=== PATIENT | male | born 1930 | race Caucasian/White ===

== ENCOUNTER → 2016-08-11 | Outpatient (CLI) | payer MEDICARE, OTHER ==
[~2016-08-11] MED LIST: /AMLO25TA PO; /ESCI10TA PO; ALBU83IN INH; ASPI81TA85 PO; CEFT500T PO; CLOP75TA2 PO; GABA300C2 PO; IMMUN40IV IV; LIDO1DIS2 TD; MOBI15TA PO; MULTTAB4 PO; PRED20TA PO; PRIL20CA PO; SYNT50TA PO; TYLE325T5 PO; ULTR50TA PO; VITA10002 PO; ZANT300T PO
--- NOTE | 2016-08-11 13:20 | REP ---
CT chest without contrast, 08/11/2016: Indication: Solitary pulmonary nodule 15 mm diameter noted in left costophrenic angle on prior PA and lateral chest 04/20/2016. Comparison: CT chest 04/28/2016, PET scan 05/03/2016, chest radiograph 12/03/2013. TECHNIQUE: 3 mm contiguous spiral axial sections performed through chest without contrast. Moderate calcification is noted in the ascending thoracic aorta and aortic arch. There is ectasia of the ascending thoracic aorta yet without aneurysm. There are multiple sub cm nodes in the aorticopulmonary window and subcarinal location, none of which are pathologically enlarged. There are no pathologically enlarged hilar nodes. There are moderate coronary artery calcifications. Bullous changes are noted, right greater than left, with peripheral predominance. There is bilateral pleural thickening, stable and without calcified pleural plaques. There are no alveolar infiltrates or pleural effusions. Ill-defined nodular opacity is present within the lingula measuring 15 x 11 mm corresponding to the area of previous nodular opacity in the left costophrenic angle. It is not significantly changed and likely represents fibroatelectatic scarring. There is moderate diffuse fatty infiltration of liver. Two ovoid areas of hypodensity within the anterior superior left lobe of liver best seen on image 95 series 202 previously demonstrated hypermetabolic activity. There are no adrenal masses. The gallbladder is contracted. Visualized portions of the pancreas are atrophic. Included portions of kidneys without hydronephrosis. Impression:1. Ill-defined 1.5 cm nodular opacity in the left costophrenic angle lies within the lingula not significantly changed from prior CT chest 04/28/2016 and most likely represents fibroatelectatic changes/scarring. There was no hypermetabolic activity in this location. Recommend follow-up CT in 6-month for reevaluation. 2. Stable bilateral pleural thickening without pleural calcifications. 3. Two hypodense areas within left lobe of liver best seen on image 95 series 202 corresponds to two areas of hypermetabolic activity on prior PET scan 05/03/2016. Further imaging with liver ultrasound may be of benefit or IV contrast enhanced CT of the liver. Signed by Jeimy Wright MD 08/13/2016 07:57 P
== END ==
LOC: M RAD 12:17
PROVIDERS: ATTEND Internal Medicine Pulmonary Disease
DX: R93.5 Abnormal findings on diagnostic imaging of other abdominal regions, including retroperitoneum (principal); R93.8 Abnormal findings on diagnostic imaging of other specified body structures

== ENCOUNTER 2016-10-08 17:44 | Inpatient (IN) | payer MEDICARE, OTHER ==
[~2016-10-08] VITALS: Ht 188 cm; Wt 106.5 kg
[~2016-10-08 17:44] MED LIST changes: -CEFT500T PO; +CEFT500T3 PO
[2016-10-08] MEDS ORDERED: FOLI1TAB2 PO (18:27)
[2016-10-08] MEDS ORDERED: MUCI600T34 PO (18:27)
[2016-10-08] MEDS ORDERED: TYLE500T78 PO (18:27)
[2016-10-08] MEDS ORDERED: VITA100072 PO (18:27)
[2016-10-08] MEDS ORDERED: METH2.5TA PO (18:27)
[2016-10-08] MEDS ORDERED: PRED25TA PO (18:27)
[2016-10-08] MEDS ORDERED: LEXA1TAB PO (18:27)
[2016-10-08] MEDS ORDERED: ivig (18:27)
[2016-10-08] MEDS ORDERED: ASTE0.15 (18:27)
[2016-10-08] MEDS ORDERED: PRIL20CA9 PO (18:27)
[2016-10-08] MEDS ORDERED: dexameTHASONE 4 MG/ML 1ML VIAL (J1100) IV ONE (19:45)
[2016-10-08] MEDS ORDERED: IPRATROPIUM 0.5MG/ALBUTEROL 2.5MG INH SOL UD 3ML (DUONEB)(J7620) NEB ONE (19:45)
[2016-10-08 19:51] LABS: BASO % 0.2 % (0.0-1.0); EOS # 0.5 K/mm3 (0.0-0.50); EOS % 3.3 % (0.0-3.0); LARGE UNSTAINED CELL # 0.1 K/mm3 (0.0-0.4); LARGE UNSTAINED CELL % 0.9 % (0.0-4.0); LYMPH # 0.5 K/mm3 (1.5-4.5); LYMPH % 2.8 % (24.0-44.0); MEAN CORPUSCULAR HEMOGLOBIN 32.2 pg (27.0-33.0); MEAN CORPUSCULAR HGB CONC 33.7 g/dl (32.0-36.5); MEAN CORPUSCULAR VOLUME 95.4 fl (80.0-96.0); MONO # 0.8 K/mm3 (0.0-0.8); MONO % 5.6 % (0.0-5.0); NEUTROPHILS # 12.2 K/mm3 (1.8-7.7); NEUTROPHILS % 87.1 % (36.0-66.0); PLATELET COUNT, AUTOMATED 193 k/mm3 (150-450); RED CELL DISTRIBUTION WIDTH 13.9 % (11.5-14.5)
[2016-10-08 19:57] LABS: CALCIUM LEVEL 8.4 MG/DL (8.8-10.2); CREATININE FOR GFR 1.29 MG/DL (0.70-1.30); GLOMERULAR FILTRATION RATE 56.2 (>35); POTASSIUM SERUM 4.3 MEQ/L (3.5-5.1)
[2016-10-08] MEDS ORDERED: traMADol 50 MG TAB PO ONE (20:30)
[2016-10-08] MEDS: AZELASTINE 137MCG NASAL SPY 30 ML (ASTELIN) SCH (21:00)
[2016-10-08] MEDS: traMADol 50 MG TAB PO SCH (21:00)
[2016-10-08 22:42] LABS: ABG BASE EXCESS 0.1 (-2.0-2.0); ABG PARTIAL PRESSURE CO2 32.9 mmHg (35.0-45.0); ABG PARTIAL PRESSURE O2 69.5 mmHg (75.0-100.0); ABG STANDARD HCO3 24.5 MEQ/L (22.0-26.0); ABG pH (ARTERIAL) 7.463 UNITS (7.350-7.450)
[2016-10-09] MEDS ORDERED: GABA600T PO (00:13)
[2016-10-09] MEDS ORDERED: SYNT50TA PO (00:13)
[2016-10-09] MEDS ORDERED: ASPI81TA7 PO (00:13)
[2016-10-09] MEDS ORDERED: PLAV75TA38 PO (00:13)
[2016-10-09] MEDS ORDERED: LIDO1PAD TD (00:13)
[2016-10-09] MEDS ORDERED: AMLO10TA2 PO (00:13)
[2016-10-09] MEDS ORDERED: METH2.5TA PO (00:14)
[2016-10-09] MEDS ORDERED: MUCI600T34 PO (00:16)
[2016-10-09] MEDS ORDERED: VITMTA PO (00:16)
[2016-10-09] MEDS ORDERED: TRAM50TA2 PO (00:18)
[2016-10-09] MEDS ORDERED: RANI300T PO (00:18)
[2016-10-09] MEDS ORDERED: BISACODYL 10 MG SUPP PR PRN (00:45)
[2016-10-09] MEDS ORDERED: ACETAMINOPHEN TAB 650MG DOSE (2X325MG) PO PRN (00:45)
[2016-10-09] MEDS ORDERED: IPRATROPIUM 0.5MG/ALBUTEROL 2.5MG INH SOL UD 3ML (DUONEB)(J7620) NEB PRN (00:45)
[2016-10-09 01:30] VITALS: BP 158/82
[2016-10-09] MEDS: IPRATROPIUM 0.5MG/ALBUTEROL 2.5MG INH SOL UD 3ML (DUONEB)(J7620) NEB SCH ×4 (02:00→20:10)
[2016-10-09] MEDS: DOCUSATE SODIUM 100 MG CAP PO SCH ×3 (02:06→20:36)
[2016-10-09] MEDS: ESCITALOPRAM OXALATE 10 MG TAB (LEXAPRO) PO SCH ×2 (02:06→20:36)
[2016-10-09] MEDS: FAMOTIDINE 20 MG TAB PO SCH ×2 (02:06→20:36)
[2016-10-09] MEDS: cefTRIAXone SOD 1 GM in D5W MINI-BAG PLUS 50 ML IV SCH (02:06)
[2016-10-09] MEDS: GABAPENTIN 300 MG CAP PO SCH ×4 (02:06→20:36)
[2016-10-09] MEDS: guaiFENesin ER 600 MG TAB PO SCH ×3 (02:06→20:36)
[2016-10-09 06:00] VITALS: BP 152/82
[2016-10-09] MEDS ORDERED: methylPREDNISolone INJ 125 MG/2 ML VIAL (J2930) IV SCH (06:00)
[2016-10-09 06:24] LABS: BASO % 0.2 % (0.0-1.0); EOS # 0.1 K/mm3 (0.0-0.50); EOS % 0.6 % (0.0-3.0); LARGE UNSTAINED CELL # 0.1 K/mm3 (0.0-0.4); LARGE UNSTAINED CELL % 1.1 % (0.0-4.0); LYMPH # 0.7 K/mm3 (1.5-4.5); LYMPH % 7.4 % (24.0-44.0); MEAN CORPUSCULAR HEMOGLOBIN 31.8 pg (27.0-33.0); MEAN CORPUSCULAR HGB CONC 33.3 g/dl (32.0-36.5); MEAN CORPUSCULAR VOLUME 95.5 fl (80.0-96.0); MONO # 0.2 K/mm3 (0.0-0.8); MONO % 1.7 % (0.0-5.0); NEUTROPHILS # 8.7 K/mm3 (1.8-7.7); NEUTROPHILS % 89.1 % (36.0-66.0); PLATELET COUNT, AUTOMATED 218 k/mm3 (150-450); RED CELL DISTRIBUTION WIDTH 13.7 % (11.5-14.5); WHITE BLOOD COUNT 9.8 K/mm3 (4.0-10.0)
--- NOTE | 2016-10-09 06:39 | HPE ---
DATE OF ADMISSION: 10/09/2016 PRIMARY CARE PROVIDER: Dr. Costa REASON FOR ADMISSION: Hypoxia. HISTORY OF PRESENT ILLNESS: Patient is an 85-year-old male with past medical history significant for hypertension, hyperlipidemia, hypothyroidism and anxiety, neuropathy, on IVIG, back pain, peripheral vascular disease (PVD), chronic bronchitis, presented to the emergency room with his daughter after he started coughing today resulting in a fall and vomiting from the cough. When daughter arrived, he felt hot and he was diaphoretic. She took his blood pressure. It was elevated. He was complaining of a cough with clear sputum that started today. Patient has a chronic cough due to history of smoking, however, this cough was worse than his normal. In the emergency room, patient was found to be hypoxic. He is not normally on oxygen. He was started on oxygen 2 liters and his saturation came up to 93 2 liters of oxygen. Arterial blood gas (ABG) was done in the emergency room, which showed hypoxia with a pO2 of 69.5. Chest x-ray was done and it showed possible infiltrate. Patient is admitted under hospitalist service. REVIEW OF SYSTEMS: At this time, patient has no complaints. He denies any shortness of breath. Denies any nausea or vomiting. Denies any chest pain or palpitations. Denies any abdominal pain. No urinary symptoms. Denies any neurological symptoms. PAST MEDICAL HISTORY: Significant for hypertension, hyperlipidemia, hypothyroidism and anxiety, neuropathy, back pain, PVD, chronic bronchitis and history of left lacunar cerebrovascular accident (CVA). PAST SURGICAL HISTORY: Significant for endarterectomy, bilateral fem-pop surgeries, abdominal aortic aneurysm (AAA) repair. ALLERGIES: NO KNOWN DRUG ALLERGIES. SOCIAL HISTORY: Patient was a smoker, quit 20 years ago. He used to smoke three packs per day for 35 years. No alcohol use. Lives at home with his . FAMILY HISTORY: Noncontributory. HOME MEDICATIONS: Include: - Tylenol 1 gram by mouth twice a day as needed, pain or fever - albuterol sulfate 2.5 mg inhaled every 6 hours as needed, shortness of breath - amlodipine 10 mg by mouth daily - aspirin 81 mg by mouth daily - Estrapo two sprays in each nares twice a day - Plavix 75 mg by mouth daily - vitamin B12 daily - Lexapro 10 mg at bedtime - folic acid 1 mg by mouth twice a day - gabapentin 600 mg by mouth three times a day - Mucinex 600 mg by mouth twice a day - Synthroid 50 mcg by mouth in the morning - lidocaine patch applied to lower back as directed - methotrexate 7.5 mg by mouth daily - multivitamin one tablet by mouth daily - omeprazole 20 mg by mouth daily - prednisone 2.5 mg by mouth daily - ranitidine 1 mg to at bedtime - tramadol 50 mg by mouth twice a day PHYSICAL EXAMINATION: Vital signs on admission: Temperature 98.6, pulse 88, respiratory rate 22, blood pressure is 161/67, pulse oximetry initially 87% on room air and with 2 liters it came up to 94%. HEENT: Pupils equal, round, reactive light and accommodation. NECK: Supple. No jugular venous distention (JVD). Respiratory: Diminished breath sounds with rhonchi in the bases. Abdomen: Soft, nontender, nondistended. Cardiac: Regular rate and rhythm. Extremities: No clubbing, cyanosis or edema. Neurologic: Cranial nerves II-XII grossly intact. LABORATORY FINDINGS: WBCs 14, hemoglobin 15, hematocrit to 44.4, platelet count 193. Sodium 134, potassium 4.3, chloride 97, BUN 16, creatinine 1.29, BNP 119, fasting glucose 140. Blood gas: pH 7.46, pCO2 32.9 pO2 69.5, bicarbonate is 23. Blood cultures are pending. ASSESSMENT AND PLAN: 1. Shortness of breath, hypoxia, likely secondary to pneumonia +/- chronic obstructive pulmonary disease (COPD) exacerbation. Patient is not normally on oxygen, but has history of COPD due to long history of tobacco use. He has quit 20 years ago. We will continue patient on DuoNebs, Solu-Medrol. We will treat empirically for pneumonia. Obtain sputum cultures. Continue oxygen, titrate between 88-92%. 2. Leukocytosis. It may be secondary to chronic steroid use versus infection. Will continue to monitor. 3. History of hypertension. Continue patient's home medications. 4. Hyperlipidemia. 5. History of hypothyroidism. 6. History of anxiety. 7. Liver lesion diagnosed last July per PET scan. Per the daughter, patient did not want any invasive procedures done. No biopsies. Patient is currently FULL CODE, but per daughter, there has been no conversation regarding DO NOT RESUSCITATE, but patient does not want anything invasive at this time. 8. Deep venous thrombosis (DVT) prophylaxis. Sequential compressive devices (SCDs) while in bed.
[2016-10-09 06:42] LABS: ALBUMIN 3.6 GM/DL (3.2-5.2); ALBUMIN/GLOBULIN RATIO 0.92 (1.00-1.93); BILIRUBIN,TOTAL 0.5 MG/DL (0.2-1.0); CALCIUM LEVEL 8.6 MG/DL (8.8-10.2); CREATININE FOR GFR 1.38 MG/DL (0.70-1.30); POTASSIUM SERUM 4.1 MEQ/L (3.5-5.1); TOTAL PROTEIN 7.5 GM/DL (6.4-8.2)
[2016-10-09] MEDS: FOLIC ACID 1 MG TAB PO SCH ×2 (08:46→12:11)
[2016-10-09] MEDS: LEVOTHYROXINE 0.05 MG TAB (50 MCG) PO SCH (08:46)
[2016-10-09] MEDS: LIDOCAINE 5% (LIDODERM) PATCH TD SCH (08:46)
[2016-10-09] MEDS: ASPIRIN 81 MG ENTERIC TAB PO SCH (08:46)
[2016-10-09] MEDS: MULTIVITAMINS/MINERALS THERAP 1 TAB PO SCH (08:46)
[2016-10-09] MEDS: OMEPRAZOLE 20 MG CAP PO SCH (08:46)
[2016-10-09] MEDS: CYANOCOBALAMIN 500 MCG TAB PO SCH (08:47)
[2016-10-09] MEDS: amLODIPine 10 MG TAB PO SCH (08:49)
[2016-10-09] MEDS: CLOPIDOGREL 75 MG TAB PO SCH (08:49)
[2016-10-09] MEDS: traMADol 50 MG TAB PO SCH ×2 (08:49→20:38)
[2016-10-09] MEDS: AZELASTINE 137MCG NASAL SPY 30 ML (ASTELIN) SCH ×2 (08:50→20:36)
--- NOTE | 2016-10-09 08:52 | REP ---
CHEST, TWO VIEWS: HISTORY: Dyspnea. COMPARISON: 04/20/2016. An increase in interstitial markings is present in the lungs consistent with chronic interstitial fibrosis. The previously noted 1.5 cm left lower lobe nodule is not seen in the present radiographs. The heart is normal in size. The pulmonary vasculature is normal in appearance. The bony structure is intact. IMPRESSION: No acute disease. Signed by Hung Avalos MD 10/09/2016 09:14 A
[2016-10-09] MEDS: methylPREDNISolone INJ 40 MG/1 ML VIAL (J2920) IV SCH ×2 (14:10→22:20)
--- NOTE | 2016-10-09 20:32 | ECGEPIP ---
Stationary ECG Study [facility] - ED Test Date: 2016-10-08 Pat Name: CHRISTINA THIBODEAUX Department: Room: [place] [address] Gender: M [employer]: : 1930 Requested By: JACK IRBY Order Number: [id number] Reading MD: Tapan Rowley Measurements Intervals [place] Rate: 96 P: 81 ME: 199 QRS: -57 QRSD: 107 T: 103 QT: 355 QTc: 451 Interpretive Statements SINUS RHYTHM LEFT ANTERIOR FASCICULAR BLOCK POSSIBLE LATERAL MYOCARDIAL INFARCTION, OF INDETERMINATE AGE NSTTW ABNORMALITIES SIMILAR TO 01/10/14 Electronically Signed On 10-09-2016 20:32:38 EST by Tapan Rowley
[2016-10-09] MEDS: **NOTE PATIENT COMMENT** MISC XX SCH (20:38)
[2016-10-09 22:00] VITALS: BP 160/55
[2016-10-09] MEDS ORDERED: CALCIUM CARBONATE 500 MG CHEW U/D PO ONE (22:45)
[2016-10-10] MEDS: IPRATROPIUM 0.5MG/ALBUTEROL 2.5MG INH SOL UD 3ML (DUONEB)(J7620) NEB SCH ×4 (02:00→20:17)
[2016-10-10] MEDS: cefTRIAXone SOD 1 GM in D5W MINI-BAG PLUS 50 ML IV SCH (02:37)
[2016-10-10 06:00] VITALS: BP 148/82
[2016-10-10] MEDS: methylPREDNISolone INJ 40 MG/1 ML VIAL (J2920) IV SCH ×2 (06:37→14:45)
[2016-10-10 06:55] LABS: EOS # 0.1 K/mm3 (0.0-0.50); EOS % 0.7 % (0.0-3.0); LARGE UNSTAINED CELL # 0.2 K/mm3 (0.0-0.4); LARGE UNSTAINED CELL % 1.2 % (0.0-4.0); LYMPH # 1.1 K/mm3 (1.5-4.5); LYMPH % 5.6 % (24.0-44.0); MEAN CORPUSCULAR HEMOGLOBIN 32.3 pg (27.0-33.0); MEAN CORPUSCULAR HGB CONC 33.2 g/dl (32.0-36.5); MEAN CORPUSCULAR VOLUME 97.3 fl (80.0-96.0); MONO # 1.2 K/mm3 (0.0-0.8); MONO % 7.6 % (0.0-5.0); NEUTROPHILS # 13.8 K/mm3 (1.8-7.7); NEUTROPHILS % 84.8 % (36.0-66.0); PLATELET COUNT, AUTOMATED 208 k/mm3 (150-450); WHITE BLOOD COUNT 16.3 K/mm3 (4.0-10.0)
[2016-10-10 07:25] LABS: ALBUMIN 3.6 GM/DL (3.2-5.2); ALBUMIN/GLOBULIN RATIO 0.95 (1.00-1.93); BILIRUBIN,TOTAL 0.3 MG/DL (0.2-1.0); CALCIUM LEVEL 8.4 MG/DL (8.8-10.2); CREATININE FOR GFR 1.36 MG/DL (0.70-1.30); GLOMERULAR FILTRATION RATE 52.9 (>35); POTASSIUM SERUM 4.5 MEQ/L (3.5-5.1); TOTAL PROTEIN 7.4 GM/DL (6.4-8.2)
[2016-10-10] MEDS: AZELASTINE 137MCG NASAL SPY 30 ML (ASTELIN) SCH ×2 (08:09→21:00)
[2016-10-10] MEDS: GABAPENTIN 300 MG CAP PO SCH ×3 (08:09→21:20)
[2016-10-10] MEDS: guaiFENesin ER 600 MG TAB PO SCH ×2 (08:10→21:20)
[2016-10-10] MEDS: MULTIVITAMINS/MINERALS THERAP 1 TAB PO SCH (08:10)
[2016-10-10] MEDS: FOLIC ACID 1 MG TAB PO SCH ×2 (08:10→11:59)
[2016-10-10] MEDS: DOCUSATE SODIUM 100 MG CAP PO SCH ×2 (08:10→21:20)
[2016-10-10] MEDS: CLOPIDOGREL 75 MG TAB PO SCH (08:10)
[2016-10-10] MEDS: traMADol 50 MG TAB PO SCH ×2 (08:10→21:21)
[2016-10-10] MEDS: ASPIRIN 81 MG ENTERIC TAB PO SCH (08:10)
[2016-10-10] MEDS: CYANOCOBALAMIN 500 MCG TAB PO SCH (08:10)
[2016-10-10] MEDS: LEVOTHYROXINE 0.05 MG TAB (50 MCG) PO SCH (08:10)
[2016-10-10] MEDS: OMEPRAZOLE 20 MG CAP PO SCH (08:10)
[2016-10-10] MEDS: LIDOCAINE 5% (LIDODERM) PATCH TD SCH (08:11)
[2016-10-10] MEDS: amLODIPine 10 MG TAB PO SCH (08:16)
--- NOTE | 2016-10-10 11:38 | IPNPDOC ---
Subjective Date Seen The patient was seen on 10/10/16. Subjective Chief Complaint/HPI The patient is a 85-year-old male admitted with a reason for visit of Hypoxia. Events since last encounter no new events overnight , patient upset as his was transferred to [place] last night for AMI. Not requiring any oxygen since last night , no fever or chills, no chest pain or shortness of breath. Objective Physical Examination General Exam: Positive: Alert, No Acute Distress Eye Exam: Positive: Conjunctiva & lids normal, EOMI, PERRLA, Negative: Sclera icteric ENT Exam: Positive: Atraumatic, Mucous membr. moist/pink, Pharynx Normal Neck Exam: Positive: Supple, Negative: JVD, thyromegaly Chest Exam: Positive: Rales, Rhonchi, Wheezing Heart Exam: Positive: Normal S1, Normal S2, Rate Normal, Regular Rhythm, Negative: Murmurs, Rubs Abdomen Exam: Positive: Normal bowel sounds, Soft, Negative: Hepatospenomegaly, Tenderness Extremity Exam: Positive: Normal pulses, Negative: Clubbing, Cyanosis, Edema Skin Exam: Positive: Nl turgor and temperature, Negative: Breakdown, Rash Assessment /Plan Problems (1) Hypoxia Status: Resolved Problem Text: due to copd exacerbation now improved. (2) Chronic obstructive pulmonary disease with (acute) exacerbation Status: Acute Problem Text: will continue with nebulizations , steroids and antibiotics. (3) Hypothyroid Status: Chronic (4) Hyperlipidemia Status: Chronic (5) Hypertension Status: Chronic (6) PVD (peripheral vascular disease) Status: Chronic Problem Text: s/p bilateral fem-pop bypass surgeries. (7) Polyneuropathy Status: Chronic (8) S/P AAA repair Status: Chronic (9) Anxiety Status: Chronic (10) H/O: CVA (cerebrovascular accident) Status: Resolved Problem Text: had carotid endarterectomy. (11) CAD (coronary artery disease) Status: Chronic Plan/VTE VTE Prophylaxis Ordered?: Yes VS, I&O, 24H, Fishbone Vital Signs/I&O Vital Signs Date Time Temp Pulse Resp B/P Pulse Ox O2 Delivery O2 Flow Rate FiO2 10/10/16 09:00 Room Air 10/10/16 08:16 83 174/68 10/10/16 08:10 18 10/10/16 06:00 97.2 90 10/09/16 06:00 2.0 I&O- Last 24 Hours up to 6 AM 10/10/16 06:00 Intake Total 2210 ml Output Total 775 ml Balance 1435 ml Laboratory Data 24H LABS Laboratory Tests 2 10/10/16 06:43: Blood Urea Nitrogen 28#H, Creatinine 1.36H, Sodium Level 134L, Potassium Level 4.5, Chloride Level 100, Carbon Dioxide Level 26, Calcium Level 8.4L, Aspartate Amino Transf (AST/SGOT) 52H, Alanine Aminotransferase (ALT/SGPT) 41, Alkaline Phosphatase 68, Total Bilirubin 0.3, Total Protein 7.4, Albumin 3.6, Albumin/ Globulin Ratio 0.95L, Anion Gap 8, White Blood Count 16.3H, Red Blood Count 4.61 , Hemoglobin 14.9, Hematocrit 44.9, Mean Corpuscular Volume 97.3H, Mean Corpuscular Hemoglobin 32.3, Mean Corpuscular Hemoglobin Concent 33.2, Red Cell Distribution Width 14.0, Platelet Count 208, Neutrophils (%) (Auto) 84.8H, Lymphocytes (%) (Auto) 5.6L, Monocytes (%) (Auto) 7.6H, Eosinophils (%) (Auto) 0.7, Basophils (%) (Auto) 0.0, Neutrophils # (Auto) 13.8H, Lymphocytes # (Auto) 1.1L, Monocytes # (Auto) 1.2H, Eosinophils # (Auto) 0.1, Basophils # (Auto) 0.0 , Glomerular Filtration Rate 52.9, Large Unclassified Cells # 0.2, Large Unclassified Cells % 1.2 CBC/BMP Laboratory Tests 10/10/16 06:43 Calcium Level 8.4 L, Aspartate Amino Transf (AST/SGOT) 52 H, Alanine Aminotransferase (ALT/SGPT) 41, Alkaline Phosphatase 68, Total Bilirubin 0.3, Total Protein 7.4, Albumin 3.6, Red Blood Count 4.61, Mean Corpuscular Volume 97.3 H, Mean Corpuscular Hemoglobin 32.3, Mean Corpuscular Hemoglobin Concent 33.2, Red Cell Distribution Width 14.0, Neutrophils (%) (Auto) 84.8 H, Lymphocytes (%) (Auto) 5.6 L, Monocytes (%) (Auto) 7.6 H, Eosinophils (%) (Auto ) 0.7, Basophils (%) (Auto) 0.0, Neutrophils # (Auto) 13.8 H, Lymphocytes # ( Auto) 1.1 L, Monocytes # (Auto) 1.2 H, Eosinophils # (Auto) 0.1, Basophils # ( Auto) 0.0 Microbiology Microbiology 10/09/16 Blood Culture - Preliminary, Resulted No growth after 24 hours . All specim... 10/09/16 Gram Stain - Final, Resulted 10/09/16 Sputum Culture, Resulted Pending VICENTE DEL REAL MD Oct 10, 2016 11:38
[2016-10-10 14:00] VITALS: BP 184/67
[2016-10-10 18:34] VITALS: BP 180/80
[2016-10-10] MEDS: **NOTE PATIENT COMMENT** MISC XX SCH (21:00)
[2016-10-10 21:20] VITALS: BP 182/78
[2016-10-10] MEDS: cloNIDine 0.1 MG TAB PO PRN (21:20)
[2016-10-10] MEDS: ESCITALOPRAM OXALATE 10 MG TAB (LEXAPRO) PO SCH (21:20)
[2016-10-10] MEDS: FAMOTIDINE 20 MG TAB PO SCH (21:20)
[2016-10-10 22:00] VITALS: BP 190/92
[2016-10-10 22:45] VITALS: BP 140/68
[2016-10-11] MEDS: IPRATROPIUM 0.5MG/ALBUTEROL 2.5MG INH SOL UD 3ML (DUONEB)(J7620) NEB SCH ×4 (01:52→19:47)
[2016-10-11] MEDS: cefTRIAXone SOD 1 GM in D5W MINI-BAG PLUS 50 ML IV SCH (02:13)
--- NOTE | 2016-10-11 05:57 | ECHO ---
DATE OF PROCEDURE: 10/10/2016 REFERRING PHYSICIAN: Dr. Antonella Valderrama INDICATION: Dyspnea. HEIGHT: 188 cm. WEIGHT: 111 kg. MEASUREMENTS: Aortic root: 3.3 cm Left atrium: 3.6 cm Ventricular septum: 1.11 cm Posterior wall: 1.09 cm Left ventricle diastole: 4.7 cm LVOT: 2.3 cm Inferior vena cava: 1.6 cm with marked respiratory variation much more than 50%. DOPPLER MEASUREMENTS: Very mild aortic regurgitation. Aortic valve velocity: 163 cm/s LVOT velocity: 85.0 cm/s Trace mitral regurgitation. Mitral E velocity: 80.0 cm/s Mitral A velocity: 117 cm/s Mitral deacceleration time: 155 ms Pulmonary acceleration time: 176 ms MITRAL ANNULAR TISSUE DOPPLER: E-prime septal: 8.2 cm/s DESCRIPTION: Rhythm was sinus. No pericardial effusion. This was a moderately technically difficult echocardiogram. This was a 2D, M-mode, color flow Doppler and pulsed wave Doppler examination and included mitral annular tissue Doppler. CONCLUSIONS: 1. Hyperdynamic LV systolic function. LVEF 75% by visual estimate. Normal LV diastolic function for age. No regional wall motion abnormalities. Normal LV wall thickness and size. 2. Pulmonary artery systolic pressure not elevated. Central venous pressure estimated to be 0-5 mmHg at the time of this study. 3. Moderate aortic valve sclerosis of a 3-cusp aortic valve. No aortic stenosis. Very mild aortic regurgitation. 4. Moderate mitral annular calcification. No mitral stenosis. Trace mitral regurgitation. 5. Moderately technically difficulty echocardiogram.
[2016-10-11 06:00] VITALS: BP 166/72
[2016-10-11] MEDS: methylPREDNISolone INJ 40 MG/1 ML VIAL (J2920) IV SCH (06:17)
[2016-10-11 06:55] LABS: BASO % 0.1 % (0.0-1.0); EOS % 0.3 % (0.0-3.0); LARGE UNSTAINED CELL # 0.4 K/mm3 (0.0-0.4); LYMPH # 0.9 K/mm3 (1.5-4.5); LYMPH % 6.5 % (24.0-44.0); MEAN CORPUSCULAR HEMOGLOBIN 31.2 pg (27.0-33.0); MEAN CORPUSCULAR HGB CONC 32.4 g/dl (32.0-36.5); MEAN CORPUSCULAR VOLUME 96.3 fl (80.0-96.0); MONO # 1.2 K/mm3 (0.0-0.8); NEUTROPHILS # 10.5 K/mm3 (1.8-7.7); NEUTROPHILS % 81.1 % (36.0-66.0); PLATELET COUNT, AUTOMATED 173 k/mm3 (150-450); RED CELL DISTRIBUTION WIDTH 13.8 % (11.5-14.5); WHITE BLOOD COUNT 12.9 K/mm3 (4.0-10.0)
[2016-10-11 07:55] LABS: ALBUMIN 3.3 GM/DL (3.2-5.2); ALBUMIN/GLOBULIN RATIO 0.85 (1.00-1.93); BILIRUBIN,TOTAL 0.3 MG/DL (0.2-1.0); CALCIUM LEVEL 8.7 MG/DL (8.8-10.2); CREATININE FOR GFR 1.26 MG/DL (0.70-1.30); GLOMERULAR FILTRATION RATE 57.8 (>35); POTASSIUM SERUM 4.5 MEQ/L (3.5-5.1); TOTAL PROTEIN 7.2 GM/DL (6.4-8.2)
[2016-10-11] MEDS: ASPIRIN 81 MG ENTERIC TAB PO SCH (09:12)
[2016-10-11] MEDS: GABAPENTIN 300 MG CAP PO SCH ×3 (09:12→20:07)
[2016-10-11] MEDS: LEVOTHYROXINE 0.05 MG TAB (50 MCG) PO SCH (09:12)
[2016-10-11] MEDS: CLOPIDOGREL 75 MG TAB PO SCH (09:12)
[2016-10-11] MEDS: guaiFENesin ER 600 MG TAB PO SCH ×2 (09:12→20:08)
[2016-10-11] MEDS: DOCUSATE SODIUM 100 MG CAP PO SCH ×2 (09:12→20:08)
[2016-10-11] MEDS: FOLIC ACID 1 MG TAB PO SCH ×2 (09:12→12:42)
[2016-10-11] MEDS: MULTIVITAMINS/MINERALS THERAP 1 TAB PO SCH (09:12)
[2016-10-11] MEDS: CYANOCOBALAMIN 500 MCG TAB PO SCH (09:12)
[2016-10-11] MEDS: OMEPRAZOLE 20 MG CAP PO SCH (09:12)
[2016-10-11] MEDS: traMADol 50 MG TAB PO SCH ×2 (09:13→20:09)
[2016-10-11] MEDS: AZELASTINE 137MCG NASAL SPY 30 ML (ASTELIN) SCH ×2 (09:13→20:07)
[2016-10-11] MEDS: LIDOCAINE 5% (LIDODERM) PATCH TD SCH (09:13)
[2016-10-11] MEDS: amLODIPine 10 MG TAB PO SCH (09:15)
[2016-10-11] MEDS: predniSONE 20 MG TAB PO SCH (10:20)
[2016-10-11 14:00] VITALS: BP 169/73
[2016-10-11] MEDS: ESCITALOPRAM OXALATE 10 MG TAB (LEXAPRO) PO SCH (20:07)
[2016-10-11] MEDS: cloNIDine 0.1 MG TAB PO PRN (20:07)
[2016-10-11] MEDS: **NOTE PATIENT COMMENT** MISC XX SCH (20:09)
[2016-10-11] MEDS: FAMOTIDINE 20 MG TAB PO SCH (20:10)
[2016-10-11 22:00] VITALS: BP 180/92
[2016-10-12] VITALS (11 sets, daily range): BP systolic 140–222; BP diastolic 66–92
[2016-10-12] MEDS: cefTRIAXone SOD 1 GM in D5W MINI-BAG PLUS 50 ML IV SCH (01:28)
[2016-10-12] MEDS: IPRATROPIUM 0.5MG/ALBUTEROL 2.5MG INH SOL UD 3ML (DUONEB)(J7620) NEB SCH ×4 (01:46→20:45)
[2016-10-12] MEDS: cloNIDine 0.1 MG TAB PO PRN ×2 (04:56→12:03)
--- NOTE | 2016-10-12 06:58 | IPNPDOC ---
Subjective Date Seen The patient was seen on 10/11/16. Subjective Chief Complaint/HPI The patient is a 85-year-old male admitted with a reason for visit of Hypoxia. Events since last encounter no complaints, feeling better, cough and shortness of breath improving. Objective Physical Examination General Exam: Positive: Alert, No Acute Distress Eye Exam: Positive: Conjunctiva & lids normal, EOMI, PERRLA, Negative: Sclera icteric ENT Exam: Positive: Atraumatic, Mucous membr. moist/pink, Pharynx Normal Neck Exam: Positive: Supple, Negative: JVD, thyromegaly Chest Exam: Positive: Rales, Rhonchi, Wheezing Heart Exam: Positive: Normal S1, Normal S2, Rate Normal, Regular Rhythm, Negative: Murmurs, Rubs Abdomen Exam: Positive: Normal bowel sounds, Soft, Negative: Hepatospenomegaly, Tenderness Extremity Exam: Positive: Normal pulses, Negative: Clubbing, Cyanosis, Edema Skin Exam: Positive: Nl turgor and temperature, Negative: Breakdown, Rash Assessment /Plan Problems (1) Hypoxia Status: Resolved Problem Text: due to copd exacerbation now improved. (2) Chronic obstructive pulmonary disease with (acute) exacerbation Status: Acute Problem Text: will continue with nebulizations , steroids and antibiotics. (3) Hypothyroid Status: Chronic Problem Text: continue synthroid (4) Hyperlipidemia Status: Chronic Problem Text: now uncontrolled due to steroids will continue amlodipine and give prn clonidine (5) Hypertension Status: Chronic (6) PVD (peripheral vascular disease) Status: Chronic Problem Text: s/p bilateral fem-pop bypass surgeries. (7) Polyneuropathy Status: Chronic Problem Text: will continue with IVIG as scheduled. (8) S/P AAA repair Status: Chronic Response to Treatment: Stable (9) Anxiety Status: Chronic (10) H/O: CVA (cerebrovascular accident) Status: Resolved Problem Text: had carotid endarterectomy. (11) CAD (coronary artery disease) Status: Chronic Plan/VTE VTE Prophylaxis Ordered?: Yes VS, I&O, 24H, Fishbone Vital Signs/I&O Vital Signs Date Time Temp Pulse Resp B/P Pulse Ox O2 Delivery O2 Flow Rate FiO2 10/12/16 04:56 180/92 10/12/16 00:02 86 10/11/16 22:00 96.8 20 95 Room Air 10/09/16 06:00 2.0 I&O- Last 24 Hours up to 6 AM 10/12/16 06:00 Intake Total 2110 ml Balance 2110 ml Laboratory Data 24H LABS Laboratory Tests 2 10/12/16 06:45: Microbiology Microbiology 10/09/16 Blood Culture - Preliminary, Resulted No Growth after 72 hours. All specime... 10/09/16 Gram Stain - Final, Complete 10/09/16 Sputum Culture - Final, Complete Raoultella Ornithinolytica Staphylococcus Aureus VICENTE DEL REAL MD Oct 12, 2016 06:58
[2016-10-12 07:12] LABS: BASO % 0.1 % (0.0-1.0); EOS % 0.2 % (0.0-3.0); LARGE UNSTAINED CELL # 0.4 K/mm3 (0.0-0.4); LARGE UNSTAINED CELL % 3.2 % (0.0-4.0); LYMPH # 1.7 K/mm3 (1.5-4.5); LYMPH % 11.9 % (24.0-44.0); MEAN CORPUSCULAR HEMOGLOBIN 31.8 pg (27.0-33.0); MEAN CORPUSCULAR HGB CONC 32.9 g/dl (32.0-36.5); MEAN CORPUSCULAR VOLUME 96.6 fl (80.0-96.0); MONO # 1.3 K/mm3 (0.0-0.8); MONO % 11.8 % (0.0-5.0); NEUTROPHILS % 72.7 % (36.0-66.0); PLATELET COUNT, AUTOMATED 221 k/mm3 (150-450); RED CELL DISTRIBUTION WIDTH 13.9 % (11.5-14.5); WHITE BLOOD COUNT 10.9 K/mm3 (4.0-10.0)
[2016-10-12 07:28] LABS: ALBUMIN 3.5 GM/DL (3.2-5.2); ALBUMIN/GLOBULIN RATIO 0.9 (1.00-1.93); BILIRUBIN,TOTAL 0.3 MG/DL (0.2-1.0); CALCIUM LEVEL 8.4 MG/DL (8.8-10.2); CREATININE FOR GFR 1.35 MG/DL (0.70-1.30); GLOMERULAR FILTRATION RATE 53.3 (>35); POTASSIUM SERUM 4.1 MEQ/L (3.5-5.1); TOTAL PROTEIN 7.4 GM/DL (6.4-8.2)
[2016-10-12] MEDS: predniSONE 20 MG TAB PO SCH (08:16)
[2016-10-12] MEDS: AZELASTINE 137MCG NASAL SPY 30 ML (ASTELIN) SCH ×2 (08:16→21:06)
[2016-10-12] MEDS: LIDOCAINE 5% (LIDODERM) PATCH TD SCH (08:16)
[2016-10-12] MEDS: amLODIPine 10 MG TAB PO SCH (08:17)
[2016-10-12] MEDS: CYANOCOBALAMIN 500 MCG TAB PO SCH (08:17)
[2016-10-12] MEDS: traMADol 50 MG TAB PO SCH ×2 (08:17→21:12)
[2016-10-12] MEDS: OMEPRAZOLE 20 MG CAP PO SCH (08:17)
[2016-10-12] MEDS: DOCUSATE SODIUM 100 MG CAP PO SCH ×2 (08:17→21:00)
[2016-10-12] MEDS: ASPIRIN 81 MG ENTERIC TAB PO SCH (08:17)
[2016-10-12] MEDS: MULTIVITAMINS/MINERALS THERAP 1 TAB PO SCH (08:17)
[2016-10-12] MEDS: CLOPIDOGREL 75 MG TAB PO SCH (08:17)
[2016-10-12] MEDS: GABAPENTIN 300 MG CAP PO SCH ×3 (08:18→21:07)
[2016-10-12] MEDS: FOLIC ACID 1 MG TAB PO SCH ×2 (08:18→12:03)
[2016-10-12] MEDS: guaiFENesin ER 600 MG TAB PO SCH ×2 (08:18→21:07)
[2016-10-12] MEDS: LEVOTHYROXINE 0.05 MG TAB (50 MCG) PO SCH (08:18)
--- NOTE | 2016-10-12 09:34 | IPNPDOC ---
Subjective Date Seen The patient was seen on 10/12/16. Subjective Chief Complaint/HPI The patient is a 85-year-old male admitted with a reason for visit of Hypoxia. Events since last encounter no complaints today , feeling well. no fever or chills, no chest pain or SOB. Objective Physical Examination General Exam: Positive: Alert, No Acute Distress Eye Exam: Positive: Conjunctiva & lids normal, EOMI, PERRLA, Negative: Sclera icteric ENT Exam: Positive: Atraumatic, Mucous membr. moist/pink, Pharynx Normal Neck Exam: Positive: Supple, Negative: JVD, thyromegaly Chest Exam: Positive: Rales, Rhonchi, Wheezing Heart Exam: Positive: Normal S1, Normal S2, Rate Normal, Regular Rhythm, Negative: Murmurs, Rubs Abdomen Exam: Positive: Normal bowel sounds, Soft, Negative: Hepatospenomegaly, Tenderness Extremity Exam: Positive: Normal pulses, Negative: Clubbing, Cyanosis, Edema Skin Exam: Positive: Nl turgor and temperature, Negative: Breakdown, Rash Assessment /Plan Problems (1) Hypoxia Status: Resolved Problem Text: due to copd exacerbation now improved. (2) Chronic obstructive pulmonary disease with (acute) exacerbation Status: Acute Problem Text: will continue with nebulizations , steroids and antibiotics. (3) Hypothyroid Status: Chronic Problem Text: continue synthroid (4) Hyperlipidemia Status: Chronic Problem Text: now uncontrolled due to steroids will continue amlodipine and give prn clonidine (5) Hypertension Status: Chronic (6) PVD (peripheral vascular disease) Status: Chronic Problem Text: s/p bilateral fem-pop bypass surgeries. (7) Polyneuropathy Status: Chronic Problem Text: will continue with IVIG as scheduled. (8) S/P AAA repair Status: Chronic Response to Treatment: Stable (9) Anxiety Status: Chronic (10) H/O: CVA (cerebrovascular accident) Status: Resolved Problem Text: had carotid endarterectomy. (11) CAD (coronary artery disease) Status: Chronic Plan/VTE VTE Prophylaxis Ordered?: Yes VS, I&O, 24H, Fishbone Vital Signs/I&O Vital Signs Date Time Temp Pulse Resp B/P Pulse Ox O2 Delivery O2 Flow Rate FiO2 10/12/16 08:18 Room Air 10/12/16 08:17 18 10/12/16 08:17 65 150/70 10/12/16 06:00 96.2 92 10/09/16 06:00 2.0 I&O- Last 24 Hours up to 6 AM 10/12/16 06:00 Intake Total 2290 ml Balance 2290 ml Laboratory Data 24H LABS Laboratory Tests 2 10/12/16 06:45: Blood Urea Nitrogen 29H, Creatinine 1.35H, Sodium Level 134L, Potassium Level 4.1, Chloride Level 97L, Carbon Dioxide Level 29, Calcium Level 8.4L, Aspartate Amino Transf (AST/SGOT) 58H, Alanine Aminotransferase (ALT/SGPT) 87H, Alkaline Phosphatase 84, Total Bilirubin 0.3, Total Protein 7.4, Albumin 3.5, Albumin/ Globulin Ratio 0.90L, Anion Gap 8, White Blood Count 10.9H, Red Blood Count 4.77 , Hemoglobin 15.2, Hematocrit 46.1, Mean Corpuscular Volume 96.6H, Mean Corpuscular Hemoglobin 31.8, Mean Corpuscular Hemoglobin Concent 32.9, Red Cell Distribution Width 13.9, Platelet Count 221, Neutrophils (%) (Auto) 72.7H, Lymphocytes (%) (Auto) 11.9L, Monocytes (%) (Auto) 11.8H, Eosinophils (%) (Auto ) 0.2, Basophils (%) (Auto) 0.1, Neutrophils # (Auto) 8.0H, Lymphocytes # (Auto ) 1.7, Monocytes # (Auto) 1.3H, Eosinophils # (Auto) 0.0, Basophils # (Auto) 0.0 , Glomerular Filtration Rate 53.3, Large Unclassified Cells # 0.4, Large Unclassified Cells % 3.2 CBC/BMP Laboratory Tests 10/12/16 06:45 Calcium Level 8.4 L, Aspartate Amino Transf (AST/SGOT) 58 H, Alanine Aminotransferase (ALT/SGPT) 87 H, Alkaline Phosphatase 84, Total Bilirubin 0.3, Total Protein 7.4, Albumin 3.5, Red Blood Count 4.77, Mean Corpuscular Volume 96.6 H, Mean Corpuscular Hemoglobin 31.8, Mean Corpuscular Hemoglobin Concent 32.9, Red Cell Distribution Width 13.9, Neutrophils (%) (Auto) 72.7 H, Lymphocytes (%) (Auto) 11.9 L, Monocytes (%) (Auto) 11.8 H, Eosinophils (%) ( Auto) 0.2, Basophils (%) (Auto) 0.1, Neutrophils # (Auto) 8.0 H, Lymphocytes # ( Auto) 1.7, Monocytes # (Auto) 1.3 H, Eosinophils # (Auto) 0.0, Basophils # (Auto ) 0.0 Microbiology Microbiology 10/09/16 Blood Culture - Preliminary, Resulted No Growth after 72 hours. All specime... 10/09/16 Gram Stain - Final, Complete 10/09/16 Sputum Culture - Final, Complete Raoultella Ornithinolytica Staphylococcus Aureus VICENTE DEL REAL MD Oct 12, 2016 09:34
[2016-10-12] MEDS ORDERED: DILUENT IV ONE (12:00)
[2016-10-12] MEDS ORDERED: IMMUNE GLOBULIN IV ONE (12:00)
[2016-10-12] MEDS ORDERED: GAMMAGARD IV ONE (12:00)
[2016-10-12] MEDS: **NOTE PATIENT COMMENT** MISC XX SCH (21:00)
[2016-10-12] MEDS: FAMOTIDINE 20 MG TAB PO SCH (21:06)
[2016-10-12] MEDS: ESCITALOPRAM OXALATE 10 MG TAB (LEXAPRO) PO SCH (21:07)
[2016-10-13] MEDS: IPRATROPIUM 0.5MG/ALBUTEROL 2.5MG INH SOL UD 3ML (DUONEB)(J7620) NEB SCH ×3 (02:17→13:17)
[2016-10-13] MEDS: cefTRIAXone SOD 1 GM in D5W MINI-BAG PLUS 50 ML IV SCH (02:34)
[2016-10-13 06:00] VITALS: BP 142/89
[2016-10-13 06:44] LABS: BASO % 0.2 % (0.0-1.0); EOS % 0.6 % (0.0-3.0); LARGE UNSTAINED CELL # 0.5 K/mm3 (0.0-0.4); LARGE UNSTAINED CELL % 5.7 % (0.0-4.0); LYMPH # 1.2 K/mm3 (1.5-4.5); LYMPH % 15.1 % (24.0-44.0); MEAN CORPUSCULAR HEMOGLOBIN 31.5 pg (27.0-33.0); MEAN CORPUSCULAR HGB CONC 33.1 g/dl (32.0-36.5); MONO # 1.1 K/mm3 (0.0-0.8); MONO % 14.4 % (0.0-5.0); PLATELET COUNT, AUTOMATED 186 k/mm3 (150-450); RED CELL DISTRIBUTION WIDTH 13.8 % (11.5-14.5); WHITE BLOOD COUNT 7.8 K/mm3 (4.0-10.0)
[2016-10-13 06:46] LABS: ALBUMIN 3.2 GM/DL (3.2-5.2); ALBUMIN/GLOBULIN RATIO 0.68 (1.00-1.93); ALKALINE PHOSPHATASE 72 U/L (45-117); ALT/SGPT 94 U/L (12-78); ANION GAP 8 MEQ/L (8-16); AST/SGOT 56 U/L (15-37); BILIRUBIN,TOTAL 0.3 MG/DL (0.2-1.0); BLOOD UREA NITROGEN 23 MG/DL (7-18); CALCIUM LEVEL 8.1 MG/DL (8.8-10.2); CARBON DIOXIDE LEVEL 28 MEQ/L (21-32); CHLORIDE LEVEL 99 MEQ/L (98-107); CREATININE FOR GFR 1.18 MG/DL (0.70-1.30); GLOMERULAR FILTRATION RATE > 60.0 (>35); GLUCOSE, FASTING 124 MG/DL (83-110); SODIUM LEVEL 135 MEQ/L (136-145); TOTAL PROTEIN 7.9 GM/DL (6.4-8.2)
[2016-10-13] MEDS: ASPIRIN 81 MG ENTERIC TAB PO SCH (08:18)
[2016-10-13] MEDS: LIDOCAINE 5% (LIDODERM) PATCH TD SCH (08:18)
[2016-10-13 08:19] VITALS: BP 142/89
[2016-10-13] MEDS: amLODIPine 10 MG TAB PO SCH (08:19)
[2016-10-13] MEDS: CYANOCOBALAMIN 500 MCG TAB PO SCH (08:19)
[2016-10-13] MEDS: FOLIC ACID 1 MG TAB PO SCH ×2 (08:19→10:55)
[2016-10-13] MEDS: LEVOTHYROXINE 0.05 MG TAB (50 MCG) PO SCH (08:19)
[2016-10-13] MEDS: OMEPRAZOLE 20 MG CAP PO SCH (08:19)
[2016-10-13] MEDS: predniSONE 20 MG TAB PO SCH (08:19)
[2016-10-13] MEDS: GABAPENTIN 300 MG CAP PO SCH (08:19)
[2016-10-13] MEDS: CLOPIDOGREL 75 MG TAB PO SCH (08:19)
[2016-10-13] MEDS: guaiFENesin ER 600 MG TAB PO SCH (08:19)
[2016-10-13] MEDS: MULTIVITAMINS/MINERALS THERAP 1 TAB PO SCH (08:20)
[2016-10-13] MEDS: traMADol 50 MG TAB PO SCH (08:20)
[2016-10-13] MEDS: AZELASTINE 137MCG NASAL SPY 30 ML (ASTELIN) SCH (08:20)
[2016-10-13] MEDS: DOCUSATE SODIUM 100 MG CAP PO SCH (08:20)
[2016-10-13] MEDS ORDERED: CEFDINIR 300 MG CAP (OMNICEF) PO SCH (09:00)
[2016-10-13] MEDS ORDERED: IPRASOL4 NEB (11:01)
[2016-10-13] MEDS ORDERED: BISA10SU PR (11:01)
[2016-10-13] MEDS ORDERED: CEFD300CAP PO (11:01)
[2016-10-13] MEDS ORDERED: CLONI1TA PO (11:01)
[2016-10-13] MEDS ORDERED: PRED10TA PO (11:01)
[2016-10-13] MEDS ORDERED: SENN8.6T7 PO (11:02)
[2016-10-14] MEDS ORDERED: predniSONE 10 MG TAB PO SCH (09:00)
--- NOTE | 2016-10-14 16:46 | DSES ---
DATE OF ADMISSION: 10/09/2016 DATE OF DISCHARGE: 10/13/2016 PRIMARY CARE PROVIDER: Frederick Costa Jr., MD DISCHARGE DIAGNOSES: 1. Chronic obstructive pulmonary disease (COPD) exacerbation. 2. Hypoxia, improved. 3. Hypothyroidism. 4. Hypertension. 5. Peripheral vascular disease. 6. History of abdominal aortic aneurysm status post repair with stenting. 7. Anxiety. 8. History of CVA. 9. History of carotid endarterectomy. 10. Coronary artery disease. 11. Chronic inflammatory demyelinating polyneuropathy on intravenous immunoglobulin (IVIG), prednisone, and methotrexate. DISCHARGE MEDICATIONS: - albuterol ipratropium nebulizer solution every 8 hours - bisacodyl suppository 10 mg daily as needed for constipation - cefdinir 300 mg by mouth twice a day - clonidine 0.1 mg by mouth twice a day - docusate senna one tablet by mouth twice a day - prednisone tapering course, then to continue prednisone 2.5 mg by mouth daily - Tylenol 1000 mg by mouth twice a day as needed - albuterol sulfate 2.5 mg inhalation every 6 hours as needed - amlodipine 10 mg daily - aspirin 81 mg daily - azelastine two sprays both nostrils twice a day - Plavix 75 mg daily - vitamin B12 1000 mcg daily - Lexapro 10 mg at bedtime - folic acid 1 mg by mouth twice a day - gabapentin 600 mg by mouth three times a day - guaifenesin 600 mg by mouth twice a day - Synthroid 50 mcg by mouth daily - Lidoderm patch as directed - methotrexate 7.5 mg by mouth daily - multivitamin one tablet by mouth daily - omeprazole 20 mg by mouth daily - ranitidine 300 mg at bedtime - tramadol 50 mg by mouth twice a day - IVIG 750 mg every 3 weeks HOSPITAL COURSE: This is an 85-year-old male who presented to the hospital with severe bout of coughing resulting in a fall and vomiting from the severe bout of coughing. He was also hot and diaphoretic. His blood pressure was elevated so he was brought to the emergency room by his daughter who is a registered nurse. Patient was found to be hypoxic on presentation and started on two liters of oxygen with improvement of oxygen saturation to 93%. Chest xray showed chronic interstitial fibrosis and the patient was admitted for COPD exacerbation and hypoxia. Patient was treated with high dose prednisone, nebulizers, and antibiotics. Patient's shortness of breath and hypoxia improved. Patient also received his scheduled IVIG dose yesterday. At present, patient is functionally at baseline, vital signs are stable. However, patient's , who was his primary caregiver, is also sick and is hospitalized. Patient did not do well with occupational therapy (OT) and also in order to live alone in the house patient would need to be better than his baseline functionality, which he failed to demonstrate, so physical therapy (PT) and OT recommended short-term rehabilitation, and so the patient is going to be discharged to [facility] ([facility]) for short-term rehabilitation. PHYSICAL EXAMINATION: VITAL SIGNS: Temperature 97.3, pulse 67, respiratory rate 20, blood pressure 142/89, pulse oximetry 94% in room air. GENERAL: Patient awake, alert, oriented times three, lying down in bed, in no acute distress. HEENT: Normocephalic, atraumatic. Moist mucous membranes. Anicteric eyes. CHEST: Clear to auscultation. CARDIOVASCULAR: S1, S2, regular. No rub, murmur, or gallop. ABDOMEN: Soft, nontender. Bowel sounds present. EXTREMITIES: No edema. LABORATORY DATA: WBC 7.8, hemoglobin 15.2, platelets 186. Sodium 135, potassium 4, chloride 99, bicarbonate 28, BUN 23, creatinine 1.1, glucose 124, calcium 8.1, AST 56, ALT 94. Sputum culture showed methicillin-sensitive Staphylococcus aureus (MSSA) and Raoultella sensitive to cephalosporins. Patient's antibiotic was changed from ceftriaxone to cefdinir. DISPOSITION: Patient is discharged to [facility] ([facility]). DISCHARGE INSTRUCTIONS: Patient to followup with primary care provider in 1-2 weeks. Regular diet. Activity as tolerated.
--- NOTE | 2016-10-15 09:59 | NOCOX ---
DATE OF PROCEDURE: 10/12/2016 INTERPRETATION: Nocturnal oximetry was performed on room air. A total of 8 hours and 8 minutes of data was reviewed. Mean oxygen saturation for the study was 94% with a minimum recorded value of 67%. He spent 10.6% of the night with saturations less than 90% with his longest continuous time less than or equal to 88% being 2 minutes and 28 seconds. There was significant fluctuations to the SpO2 waveform suggestive of sleep disorder breathing. IMPRESSION: 1. Nocturnal hypoxemia with a total of 21 minutes spent saturations less than 88%. However, the longest continuous time was only 2 minutes and 28 seconds. 2. Fluctuations in the SpO2 waveform suggestive of sleep disorder breathing. Clinical correlation will be necessary.
== END 2016-10-13 13:54 | DRG 191 ==
LOC: EDBD 17:44 → M ED 20:37 → M ED INP 10-09 00:40 → M MSPAV 10-09 01:29
PROVIDERS: ADMIT Internal Medicine; ATTEND Internal Medicine Nephrology
DX: J44.1 Chronic obstructive pulmonary disease with (acute) exacerbation (principal); G61.81 Chronic inflammatory demyelinating polyneuritis; I10 Essential (primary) hypertension; E78.5 Hyperlipidemia, unspecified; E03.9 Hypothyroidism, unspecified; F41.9 Anxiety disorder, unspecified; D72.829 Elevated white blood cell count, unspecified; J84.10 Pulmonary fibrosis, unspecified; R09.02 Hypoxemia; I25.10 Atherosclerotic heart disease of native coronary artery without angina pectoris; I73.9 Peripheral vascular disease, unspecified; Z86.73 Personal history of transient ischemic attack (TIA), and cerebral infarction without residual deficits; M54.9 Dorsalgia, unspecified; Z87.891 Personal history of nicotine dependence; Z79.82 Long term (current) use of aspirin; Z79.02 Long term (current) use of antithrombotics/antiplatelets; Z79.52 Long term (current) use of systemic steroids; Z79.891 Long term (current) use of opiate analgesic; Z79.899 Other long term (current) drug therapy

== ENCOUNTER → 2016-10-16 | Outpatient (REF) ==
[~2016-10-16] MED LIST changes: +AMLO10TA2 PO; +ASPI81TA7 PO; +ASTE0.15; +BISA10SU PR; +CEFD300CAP PO; +CLONI1TA PO; +FOLI1TAB2 PO; +GABA600T PO; +IPRASOL4 NEB; +LEXA1TAB PO; +LIDO1PAD TD; +METH2.5TA PO; +MUCI600T34 PO; +PLAV75TA38 PO; +PRED10TA PO; +PRED25TA PO; +PRIL20CA9 PO; +RANI300T PO; +SENN8.6T7 PO; +TRAM50TA2 PO; +TYLE500T78 PO; +VITA100072 PO; +VITMTA PO; +ivig
[2016-10-16 08:32] LABS: MEAN CORPUSCULAR VOLUME 97.1 fl (80.0-96.0); WHITE BLOOD COUNT 9.6 K/mm3 (4.0-10.0)
[2016-10-16 08:55] LABS: CALCIUM LEVEL 8.6 MG/DL (8.8-10.2); CREATININE FOR GFR 1.35 MG/DL (0.70-1.30); GLOMERULAR FILTRATION RATE 53.3 (>35)
== END ==
LOC: SKLAB2 07:08
PROVIDERS: ATTEND Internal Medicine
DX: I10 Essential (primary) hypertension (principal)

== ENCOUNTER → 2016-11-07 | Outpatient (REF) ==
--- NOTE | 2016-11-07 08:58 | REP ---
LEFT KNEE, TWO VIEWS: Two views of the left knee are performed. There is no acute fracture or dislocation. Oval ossific density along the lateral aspect of the patella may represent an old fracture or accessory ossicle. There is mild medial joint space narrowing. There is mild narrowing of the patellofemoral joint. I do not see a significant joint effusion. There are vascular calcifications and multiple metallic clips posteriorly. IMPRESSION: Degenerative changes as above. Accessory ossicle or old fracture lateral patella. Signed by Tae aRi MD 11/07/2016 09:41 A
== END ==
LOC: SKLAB2 07:36
PROVIDERS: ATTEND Internal Medicine
DX: M17.12 Unilateral primary osteoarthritis, left knee (principal)

== ENCOUNTER → 2016-11-13 | Outpatient (REF) | LOC: SKLAB2 07:00 | PROVIDERS: ATTEND Internal Medicine | DX: I10 Essential (primary) hypertension (principal) ==

== ENCOUNTER → 2018-06-20 | Outpatient (REF) | payer MEDICARE, OTHER, MEDICAID ==
[2018-06-20 10:08] LABS: HEMATOCRIT 43.3 % (42.0-52.0); HEMOGLOBIN 14.6 g/dl (13.5-17.5); MEAN CORPUSCULAR HEMOGLOBIN 31.3 pg (27.0-33.0); MEAN CORPUSCULAR HGB CONC 33.7 g/dl (32.0-36.5); MEAN CORPUSCULAR VOLUME 92.7 fl (80.0-96.0); PLATELET COUNT, AUTOMATED 243 10^3/uL (150-450); RED BLOOD COUNT 4.67 10^6/uL (4.30-6.10); RED CELL DISTRIBUTION WIDTH 17.4 % (11.5-14.5); WHITE BLOOD COUNT 16.5 10^3/uL (4.0-10.0)
[2018-06-20 10:42] LABS: ALBUMIN 3.4 GM/DL (3.2-5.2); ALBUMIN/GLOBULIN RATIO 0.94 (1.00-1.93); ALKALINE PHOSPHATASE 435 U/L (45-117); ALT/SGPT 115 U/L (12-78); ANION GAP 11 MEQ/L (8-16); AST/SGOT 239 U/L (7-37); BILIRUBIN,TOTAL 2.4 MG/DL (0.2-1.0); BLOOD UREA NITROGEN 33 MG/DL (7-18); CALCIUM LEVEL 10.1 MG/DL (8.8-10.2); CARBON DIOXIDE LEVEL 24 MEQ/L (21-32); CHLORIDE LEVEL 106 MEQ/L (98-107); GLOMERULAR FILTRATION RATE 55.5 (>35); GLUCOSE, FASTING 162 MG/DL (70-100); POTASSIUM SERUM 5.2 MEQ/L (3.5-5.1); SODIUM LEVEL 141 MEQ/L (136-145)
[2018-06-20 11:45] LABS: VITAMIN B12 LEVEL > 2000 PG/ML (247-911)
[2018-06-20 11:57] LABS: AMMONIA 60 uMOL/L (<32)
== END ==
LOC: SKLAB5 07:23
DX: E03.9 Hypothyroidism, unspecified (principal); I10 Essential (primary) hypertension; Z79.899 Other long term (current) drug therapy
CPT/HCPCS: 82140